=== PATIENT | female | born 1960 | race Caucasian/White ===

== ENCOUNTER 2022-02-07 05:10 | Observation (INO) ==
[2022-02-07] MEDS ORDERED: SODIUM CHLORIDE 0.9% 1000ML 1,000 ML IV ONE ×2 (05:37→06:24)
[2022-02-07] MEDS ORDERED: LORazepam 2 MG/2 ML SYR IV STA ×2 (05:37→06:03)
[2022-02-07] MEDS ORDERED: PIPERACILLIN/TAZOBACTAM 4.5 GM/120 ML BAG IV ONE (05:37)
[2022-02-07] MEDS ORDERED: ACETAMINOPHEN 1,000 MG/100 ML VIAL IV STA (05:39)
--- NOTE | 2022-02-07 05:46 | Emergency Department Note ---
History of Present Illness General Chief complaint: Confusion Stated complaint: CAN'T COMPREHEND,CONFUSION-GETTING WORSE Time Seen by Provider: 02/07/22 05:21 History of Present Illness This 62-year-old presents to the ER complaining of increased confusion fever and headache for the past few days who left AMA from [facility] waiting room Location: Generalized Quality: Confused Severity: Moderate Duration: Past few days Timing: Started Sunday Context: Family was concerned and brought the patient in Modifying factors: better with nothing; worse with nothing Patient herself appears confused and history is obtained from the daughter. The daughter states the patient normally is quite conversive. She has become more confused the past few days. She has a fever here. They did not notice a fever prior. Patient is able to follow commands. Her speech is slurred. She was emergently sent down for CT CTAs for stroke rule out. Symptoms started Sunday though. She is outside the window for treatment. Home Medications Medication Instructions Recorded Confirmed Type atorvastatin 40 mg tablet 40 mg PO DAILY 06/03/19 06/03/19 History cilostazol 50 mg tablet 50 mg PO BID 06/03/19 06/03/19 History citalopram 20 mg tablet 30 mg PO DAILY 06/03/19 06/03/19 History clopidogrel 75 mg tablet (Plavix) 75 mg PO DAILY 06/03/19 06/03/19 History gabapentin 300 mg capsule 300 mg PO .COMPLEX 06/03/19 06/03/19 History meloxicam 15 mg tablet 15 mg PO DAILY 06/03/19 06/03/19 History omeprazole 40 mg capsule,delayed 40 mg PO DAILY 06/03/19 06/03/19 History release trazodone 50 mg tablet 50 mg PO DAILY 06/03/19 06/03/19 History Allergies Allergy/AdvReac Type Severity Reaction Status Date / Time morphine Allergy Unknown SENSITIVITY Verified 06/03/19 10:59 -NAUSEA/RED NESS/SWELLI NG Past Med/Surg History Medical History (Updated 02/07/22 @ 06:56 by Toshia Skinner PA-C) Anxiety Surgical History (Updated 02/07/22 @ 05:41 by Toshia Skinner PA-C) No pertinent past surgical history Social History Smoking Status: Never smoker Preferred Language: Latvian Feels Safe at Home: Yes Review of Systems A total of 10 systems reviewed and were otherwise negative Physical Exam Vital Signs Vital Signs - 24 hr 02/07/22 05:14 02/07/22 05:26 02/07/22 06:11 Temperature 36.8 C 38.1 C H Temperature Source Temporal Artery Scan Rectal Pulse Rate 128 H Respiratory Rate 18 Respiratory Effort / Characteristics Non-Labored Spontaneous Respiratory Depth Normal Blood Pressure 135/82 Blood Pressure Mean 99 Blood Pressure Position Sitting Pulse Oximetry 93 88 L Oxygen Delivery Method Room Air Nasal Cannula Oxygen Flow Rate 2 Sepsis Recent Fever Within 48 Hours No Sepsis New/Unexplained Change in Mental Status No Sepsis Action Taken by Nursing No Action Required Oxygen Flow Rate - Titration 2 Pulse Oximetry Post Tiitration 92 VITALS: Vitals are noted on the nurse's note and reviewed by myself. Vital signs febrile. GENERAL: White female following commands with gargled speech, SKIN: The skin was without rashes, erythema, edema, or bruising. There is no tenting of the skin. Capillary reflex less than 2 seconds. HEAD: Normocephalic atraumatic. EARS: External auditory canals clear, EYES: Pupils equal round and reactive to light and accommodation. Conjunctivae without injection, sclerae without icterus. Extraocular movements intact. NOSE: Patent, turbinates without inflammation or discharge. No sinus tenderness. MOUTH: Mucous membranes mildly dry. Pharynx without erythema or exudate. Uvula midline. Airway patent. Tongue does not deviate. NECK: Supple without nuchal rigidity. No lymphadenopathy. No thyromegaly. Cervical spine is nontender. No JVD. HEART: Mildly tachycardic rate and rhythm LUNGS: Clear to auscultation bilaterally without wheezes, rales or rhonchi. No retractions or accessory muscle use. ABDOMEN: Positive bowel sounds x 4. Normal tympanic percussion. Soft, nontender, without masses or organomegaly. Osman sign negative. No guarding or rebound tenderness. No CVA tenderness MUSCULOSKELETAL: No muscle atrophy, erythema, or edema noted. NEURO: Patient was alert and oriented to person but not to place and time. Patient follows commands but appears confused. Course Administered Medications Discontinued Medications Sodium Chloride (Nss 1000ml) 1,000 mls @ 999 mls/hr IV .Q1H1M ONE Stop: 02/07/22 06:37 Last Admin: 02/07/22 05:50 Dose: 999 mls/hr Documented By: MARLENE Acetaminophen (Ofirmev) 1,000 mg in 100 mls @ 400 mls/hr IV NOW STA Stop: 02/07/22 05:53 Last Admin: 02/07/22 05:54 Dose: 400 mls/hr Documented By: MARLENE Ioversol (Optiray 300 500ml) 109 ml IV ONCE ONE Stop: 02/07/22 06:15 Last Admin: 02/07/22 06:15 Dose: 109 ml Documented By: CATRINA Lorazepam (Lorazepam 2 Mg/1 Ml Vial) 1 mg IV NOW STA; Protocol Stop: 02/07/22 05:38 Last Admin: 02/07/22 05:50 Dose: 1 mg Documented By: MARLENE Lorazepam (Lorazepam 2 Mg/1 Ml Vial) 1 mg IV NOW STA; Protocol Stop: 02/07/22 06:04 Last Admin: 02/07/22 06:05 Dose: 1 mg Documented By: BRITTNEE Metoclopramide HCl (Metoclopramide Hcl Inj 5 Mg/Ml 2 Ml Vial) 5 mg IV ONE ONE Stop: 02/07/22 06:17 Last Admin: 02/07/22 06:47 Dose: 5 mg Documented By: MARLENE Medical Decision Making Medical Records Attestation: I reviewed the patient's medical records. Home Medications Current Medication List: was personally reviewed by me Laboratory Data Attestation: I reviewed the patient's lab results. Result diagrams: 02/07/22 05:45 02/07/22 05:45 Lab Results 02/07/22 02/07/22 02/07/22 Range/Units 05:22 05:32 05:40 WBC (4.8-10.8) K/ul RBC (3.93-5.22) M/uL Hgb (12.0-16.0) g/dl Hct (34.1-44.9) % MCV (80.0-100.0) fL MCH (25.0-34.0) pg MCHC (32.0-36.0) g/dL RDW Std Deviation (36.4-46.3) fL RDW Coeff of Parker (11.5-14.5) % Plt Count (130-400) K/uL MPV (9.4-12.3) fL Immature Gran % (Auto) % Neut % (Auto) % Lymph % (Auto) % [place] % (Auto) % Eos % (Auto) % Baso % (Auto) % Neut # (Auto) (1.4-6.5) K/uL Lymph # (Auto) (1.2-3.4) K/uL [place] # (Auto) (0.24-0.82) K/uL Eos # (Auto) (0-0.50) K/uL Baso # (Auto) (0-0.2) K/uL Immature Gran # (Auto) (0.00-0.02) K/uL PT INR APTT PTT Ratio Sodium (136-145) mmol/L Potassium (3.5-5.1) mmol/L Chloride (98-107) mmol/L Carbon Dioxide (21-32) mmol/L Anion Gap (3-11) BUN (6-23) mg/dl Creatinine (0.6-1.2) mg/dl Est Cr Clr Drug Dosing Est GFR ( Amer) ml/min Est GFR (Non-Af Amer) ml/min BUN/Creatinine Ratio (10-20) Glucose (70-99(Fasting)) mg/dl POC Glucose 133 H (70-99) mg/dl Lactate (0.4-2.0) mmol/L Calcium (8.5-10.1) mg/dl Magnesium (1.7-2.4) mg/dl Total Bilirubin (0.2-1.0) mg/dl AST (13-39) U/L ALT (7-52) U/L Alkaline Phosphatase (34-104) U/L Troponin I High Sens (0-14) pg/ml Total Protein (6.0-8.3) gm/dl Albumin (3.4-5.0) gm/dl Globulin (2.5-4.0) gm/dl Albumin/Globulin Ratio (0.9-2) Urine Color Yellow Urine Appearance Clear (Clear) Urine pH 6.0 (4.5-7.5) Ur Specific [place] >= 1.030 (1.000-1.030) Urine Protein 3+ H (Negative) Urine Glucose (UA) Negative (Negative) Urine Ketones 2+ H (Negative) Urine Blood 2+ H (Negative) Urine Nitrite Negative (Negative) Urine Bilirubin 1+ H (Negative) Urine Urobilinogen Negative (Negative) Ur Leukocyte Esterase Negative (Negative) Urine RBC 0-4 (0-4) /hpf Urine WBC 5-10 H (0-5) /hpf Ur Epithelial Cells 0-5 (0-5) /lpf Urine Bacteria Negative (Negative) Urine Yeast Budding A (None Prsent) Adenovirus (PCR) Not Detected (NotDetected) B. pertussis DNA (PCR) Not Detected (NotDetected) B.parapertussis DNA PCR Not Detected (NotDetected) C. pneumoniae DNA (PCR) Not Detected (NotDetected) Coronavirus OC43 (PCR) Not Detected (NotDetected) Coronavirus HKU1 (PCR) Not Detected (NotDetected) Coronavirus 229E (PCR) Not Detected (NotDetected) SARS-CoV-2 (PCR) Not Detected (NotDetected) Coronavirus NL63 (PCR) Not Detected (NotDetected) Human Metapneumovir PCR Not Detected (NotDetected) Influenza Type A (PCR) Not Detected (NotDetected) Influenza Type B (PCR) Not Detected (NotDetected) M. pneumoniae (PCR) Not Detected (NotDetected) Parainfluenza 1 (PCR) Not Detected (NotDetected) Parainfluenza 2 (PCR) Not Detected (NotDetected) Parainfluenza 3 (PCR) Not Detected (NotDetected) Parainfluenza 4 (PCR) Not Detected (NotDetected) RSV (PCR) Not Detected (NotDetected) Entero/Rhino (PCR) Not Detected (NotDetected) 02/07/22 02/07/22 02/07/22 Range/Units 05:45 05:45 05:45 WBC 18.14 H (4.8-10.8) K/ul RBC 5.06 (3.93-5.22) M/uL Hgb 14.9 (12.0-16.0) g/dl Hct 43.2 (34.1-44.9) % MCV 85.4 (80.0-100.0) fL MCH 29.4 (25.0-34.0) pg MCHC 34.5 (32.0-36.0) g/dL RDW Std Deviation 38.5 (36.4-46.3) fL RDW Coeff of Parker 12.5 (11.5-14.5) % Plt Count 379 (130-400) K/uL MPV 9.3 L (9.4-12.3) fL Immature Gran % (Auto) 0.5 % Neut % (Auto) 71.0 % Lymph % (Auto) 16.5 % [place] % (Auto) 11.9 % Eos % (Auto) 0.0 % Baso % (Auto) 0.1 % Neut # (Auto) 12.88 H (1.4-6.5) K/uL Lymph # (Auto) 2.99 (1.2-3.4) K/uL [place] # (Auto) 2.16 H (0.24-0.82) K/uL Eos # (Auto) 0.00 (0-0.50) K/uL Baso # (Auto) 0.02 (0-0.2) K/uL Immature Gran # (Auto) 0.09 H (0.00-0.02) K/uL PT Cancelled INR Cancelled APTT Cancelled PTT Ratio Cancelled Sodium 132 L (136-145) mmol/L Potassium 2.7 L (3.5-5.1) mmol/L Chloride 93 L (98-107) mmol/L Carbon Dioxide 29 (21-32) mmol/L Anion Gap 10 (3-11) BUN 21 (6-23) mg/dl Creatinine 0.62 (0.6-1.2) mg/dl Est Cr Clr Drug Dosing Not Reportable Est GFR ( Amer) 112.0 ml/min Est GFR (Non-Af Amer) 96.6 ml/min BUN/Creatinine Ratio 33.9 H (10-20) Glucose 125 H (70-99(Fasting)) mg/dl POC Glucose (70-99) mg/dl Lactate (0.4-2.0) mmol/L Calcium 8.9 (8.5-10.1) mg/dl Magnesium 1.9 (1.7-2.4) mg/dl Total Bilirubin 1.3 H (0.2-1.0) mg/dl AST 29 (13-39) U/L ALT 22 (7-52) U/L Alkaline Phosphatase 76 (34-104) U/L Troponin I High Sens 39.9 H (0-14) pg/ml Total Protein 6.4 (6.0-8.3) gm/dl Albumin 4.4 (3.4-5.0) gm/dl Globulin 2.0 L (2.5-4.0) gm/dl Albumin/Globulin Ratio 2.2 H (0.9-2) Urine Color Urine Appearance (Clear) Urine pH (4.5-7.5) Ur Specific [place] (1.000-1.030) Urine Protein (Negative) Urine Glucose (UA) (Negative) Urine Ketones (Negative) Urine Blood (Negative) Urine Nitrite (Negative) Urine Bilirubin (Negative) Urine Urobilinogen (Negative) Ur Leukocyte Esterase (Negative) Urine RBC (0-4) /hpf Urine WBC (0-5) /hpf Ur Epithelial Cells (0-5) /lpf Urine Bacteria (Negative) Urine Yeast (None Prsent) Adenovirus (PCR) (NotDetected) B. pertussis DNA (PCR) (NotDetected) B.parapertussis DNA PCR (NotDetected) C. pneumoniae DNA (PCR) (NotDetected) Coronavirus OC43 (PCR) (NotDetected) Coronavirus HKU1 (PCR) (NotDetected) Coronavirus 229E (PCR) (NotDetected) SARS-CoV-2 (PCR) (NotDetected) Coronavirus NL63 (PCR) (NotDetected) Human Metapneumovir PCR (NotDetected) Influenza Type A (PCR) (NotDetected) Influenza Type B (PCR) (NotDetected) M. pneumoniae (PCR) (NotDetected) Parainfluenza 1 (PCR) (NotDetected) Parainfluenza 2 (PCR) (NotDetected) Parainfluenza 3 (PCR) (NotDetected) Parainfluenza 4 (PCR) (NotDetected) RSV (PCR) (NotDetected) Entero/Rhino (PCR) (NotDetected) 02/07/22 Range/Units 05:45 WBC (4.8-10.8) K/ul RBC (3.93-5.22) M/uL Hgb (12.0-16.0) g/dl Hct (34.1-44.9) % MCV (80.0-100.0) fL MCH (25.0-34.0) pg MCHC (32.0-36.0) g/dL RDW Std Deviation (36.4-46.3) fL RDW Coeff of Parker (11.5-14.5) % Plt Count (130-400) K/uL MPV (9.4-12.3) fL Immature Gran % (Auto) % Neut % (Auto) % Lymph % (Auto) % [place] % (Auto) % Eos % (Auto) % Baso % (Auto) % Neut # (Auto) (1.4-6.5) K/uL Lymph # (Auto) (1.2-3.4) K/uL [place] # (Auto) (0.24-0.82) K/uL Eos # (Auto) (0-0.50) K/uL Baso # (Auto) (0-0.2) K/uL Immature Gran # (Auto) (0.00-0.02) K/uL PT INR APTT PTT Ratio Sodium (136-145) mmol/L Potassium (3.5-5.1) mmol/L Chloride (98-107) mmol/L Carbon Dioxide (21-32) mmol/L Anion Gap (3-11) BUN (6-23) mg/dl Creatinine (0.6-1.2) mg/dl Est Cr Clr Drug Dosing Est GFR ( Amer) ml/min Est GFR (Non-Af Amer) ml/min BUN/Creatinine Ratio (10-20) Glucose (70-99(Fasting)) mg/dl POC Glucose (70-99) mg/dl Lactate 1.7 (0.4-2.0) mmol/L Calcium (8.5-10.1) mg/dl Magnesium (1.7-2.4) mg/dl Total Bilirubin (0.2-1.0) mg/dl AST (13-39) U/L ALT (7-52) U/L Alkaline Phosphatase (34-104) U/L Troponin I High Sens (0-14) pg/ml Total Protein (6.0-8.3) gm/dl Albumin (3.4-5.0) gm/dl Globulin (2.5-4.0) gm/dl Albumin/Globulin Ratio (0.9-2) Urine Color Urine Appearance (Clear) Urine pH (4.5-7.5) Ur Specific [place] (1.000-1.030) Urine Protein (Negative) Urine Glucose (UA) (Negative) Urine Ketones (Negative) Urine Blood (Negative) Urine Nitrite (Negative) Urine Bilirubin (Negative) Urine Urobilinogen (Negative) Ur Leukocyte Esterase (Negative) Urine RBC (0-4) /hpf Urine WBC (0-5) /hpf Ur Epithelial Cells (0-5) /lpf Urine Bacteria (Negative) Urine Yeast (None Prsent) Adenovirus (PCR) (NotDetected) B. pertussis DNA (PCR) (NotDetected) B.parapertussis DNA PCR (NotDetected) C. pneumoniae DNA (PCR) (NotDetected) Coronavirus OC43 (PCR) (NotDetected) Coronavirus HKU1 (PCR) (NotDetected) Coronavirus 229E (PCR) (NotDetected) SARS-CoV-2 (PCR) (NotDetected) Coronavirus NL63 (PCR) (NotDetected) Human Metapneumovir PCR (NotDetected) Influenza Type A (PCR) (NotDetected) Influenza Type B (PCR) (NotDetected) M. pneumoniae (PCR) (NotDetected) Parainfluenza 1 (PCR) (NotDetected) Parainfluenza 2 (PCR) (NotDetected) Parainfluenza 3 (PCR) (NotDetected) Parainfluenza 4 (PCR) (NotDetected) RSV (PCR) (NotDetected) Entero/Rhino (PCR) (NotDetected) Imaging Data Attestation: I personally reviewed and interpreted this imaging study as follows: MDM Narrative Prior records/ancillary studies reviewed and summarized above. Nursing notes reviewed. Additional history obtained from family. The patient's history was concerning for altered mental status. Differential diagnosis: Etiologies such as metabolic, infection, hypoglycemia, electrolyte abnormalities, cardiac sources, intracerebral event, toxicologic, neurologic, as well as others were entertained. Physical examination: As above. ER treatment provided: IV Lock Normal saline, Zosyn, vancomycin An order was placed for continuous cardiac monitoring. The monitor shows a rate of 60-1 50 with a sinus rhythm. Records requested from [facility], creatinine was 0.68 verbally from [facility] Tylenol was given, patient was agitated and was given Ativan On reassessment the patients mental status improved. Diagnostics interpretation by me: ECG: Ordered for altered mental status EKG: Poor baseline, rate of 118. No obvious ST elevation. Impression poor baseline sinus tachycardia interpreted by myself I think arrhythmia is unlikely. EKG shows There are no findings to suggest Brugada syndrome. Cardiac monitoring in the emergency department reveals no tachycardic or bradycardic dysrhythmia. Hypertrophic cardiomyopathy was considered but there are no clear historical elements pointing toward this. EKG is not suggestive. The QRS voltage is not extremely large The labs revealed leukocytosis Blood cultures pending Hypokalemia this is given orally and through the IV Negative urine Elevated troponin and repeat was ordered Imaging studies: Preliminary Findings Only See Final Report For Complete Findings CT HEAD: IMPRESSION: No ICH, mass effect or edema. No major vascular territory infarct. If persistent clinical concern for acute stroke, MRI could further evaluate Calvarium intact. Visualized sinuses and mastoid air cells are clear. Radiologist: Edmond Davila M.D. Chest x-ray with no acute consolidation, pneumothorax or free interpretation CTA HEAD: IMPRESSION: Exam mildly motion degraded. Within this constraint: No large vessel occlusion, significant stenosis, aneurysm or vascular malformation. Radiologist: Edmond Davila M.D. Preliminary Findings Only See Final Report For Complete Findings CTA NECK: IMPRESSION: No significant stenosis, dissection or vascular injury. Soft tissues of the neck are grossly unremarkable. Visualized lung apices are grossly clear. Osseous structures are intact. Radiologist: Edmond Davila M.D Given the above diagnostic work-up and treatment, this episode appears to be consistent with sepsis. Patient was started on broad-spectrum antibiotics. She was medicated as above. She will be admitted. Further treatment will be required. Patient was reassessed multiple times. She was medicated as above. She will be admitted. Patient was extremely agitated and would not sit still for CAT scan so she was given Ativan. She was reassessed multiple times. [facility] was contacted for her records. Patient will be admitted. Consultation: A consultation was placed with the hospitalist. The case was discussed and diagnostics were reviewed. The patient was evaluated in the ER for further treatment. The chart was completed utilizing [employer] Speech voice recognition software. Grammatical errors, random word insertions, pronoun errors, and incomplete sentences are an occassional consequence of this system due to software limitations, ambient noise, and hardware issues. Any formal questions or concerns about the content, text, or information contained within the body of this dictation should be directly addressed to the physician ex assistant/program director for clarification. Impression & Plan Sepsis, Altered mental status, Hypokalemia, Elevated troponin Discharge Plan Visit Data Chief Complaint: Confusion Stated Complaint: CAN'T COMPREHEND,CONFUSION-GETTING WORSE ED Provider: Byron Echeverria ED Midlevel Provider: Toshia Skinner Discharge Problem: Sepsis, Altered mental status, Hypokalemia, Elevated troponin Patient Disposition: Admitted As Inpatient Condition: Fair Forms Stand Alone Forms: [facility] [employer] Prescriptions Prescriptions: No Action gabapentin 300 mg capsule 300 mg PO .COMPLEX Rx Instructions: 300 mg PO 1 capsule in the AM, 2 capsules midday, & 2 capsules at bedtime; atorvastatin 40 mg tablet 40 mg PO DAILY clopidogrel [Plavix] 75 mg tablet 75 mg PO DAILY omeprazole 40 mg capsule,delayed release(DR/EC) 40 mg PO DAILY meloxicam 15 mg tablet 15 mg PO DAILY trazodone 50 mg tablet 50 mg PO DAILY citalopram 20 mg tablet 30 mg PO DAILY cilostazol 50 mg tablet 50 mg PO BID Referrals Referrals: Osbaldo Mcintosh [Primary Care Provider] -
[2022-02-07] MEDS ORDERED: VANCOMYCIN HCL 2,000 MG in SODIUM CHLORIDE 0.9% 500 ML IV ONE (05:55)
[2022-02-07] MEDS ORDERED: VANCOMYCIN CONSULT ACTIVE PRN (05:55)
[2022-02-07 05:59] LABS: Basophils # (auto) 0.02 K/uL (0-0.2); Basophils % (auto) 0.1 %; Hematocrit (blood only) 43.2 % (34.1-44.9); Hemoglobin 14.9 g/dl (12.0-16.0); Immature Granulocytes # (auto) 0.09 K/uL (0.00-0.02); Immature Granulocytes % (auto) 0.5 %; Lymphocytes # (auto) 2.99 K/uL (1.2-3.4); Lymphocytes % (auto) 16.5 %; Mean Corpuscular Hemoglobin 29.4 pg (25.0-34.0); Mean Corpuscular Hgb Conc 34.5 g/dL (32.0-36.0); Mean Corpuscular Volume 85.4 fL (80.0-100.0); Mean Platelet Volume 9.3 fL (9.4-12.3); Monocytes # (auto) 2.16 K/uL (0.24-0.82); Monocytes % (auto) 11.9 %; Neutrophils # (auto) 12.88 K/uL (1.4-6.5); Platelet Count 379 K/uL (130-400); RDW Coefficient of Variation 12.5 % (11.5-14.5); RDW Standard Deviation 38.5 fL (36.4-46.3); Red Blood Count 5.06 M/uL (3.93-5.22); White Blood Count 18.14 K/ul (4.8-10.8)
[2022-02-07] MEDS ORDERED: OPTIRAY 300 500mL IV ONE ×2 (06:14→09:20)
[2022-02-07 06:15] LABS: Appearance Urine Clear (Clear); Bilirubin Urine 1+ (Negative); Blood Urine 2+ (Negative); Color Urine Yellow; Glucose Urine UA Negative (Negative); Ketones Urine 2+ (Negative); Leukocyte Esterase Urine Negative (Negative); Nitrite Urine Negative (Negative); Protein Urine 3+ (Negative); Specific Gravity Urine >= 1.030 (1.000-1.030); Urobilinogen Urine Negative (Negative)
[2022-02-07] MEDS ORDERED: METOCLOPRAMIDE HCL INJ 5 MG/ML 2 ML VIAL IV ONE (06:16)
[2022-02-07 06:20] LABS: Alanine Aminotransferase 22 U/L (7-52); Albumin Globulin Ratio 2.2 (0.9-2); Albumin Level 4.4 gm/dl (3.4-5.0); Alkaline Phosphatase 76 U/L (34-104); Anion Gap 10 (3-11); Aspartate Aminotransferase 29 U/L (13-39); BUN Creatinine Ratio 33.9 (10-20); Bilirubin,Total 1.3 mg/dl (0.2-1.0); Blood Urea Nitrogen 21 mg/dl (6-23); Calcium 8.9 mg/dl (8.5-10.1); Carbon Dioxide 29 mmol/L (21-32); Chloride 93 mmol/L (98-107); Est GFR (Non-African American) 96.6 ml/min; Glucose 125 mg/dl (70-99(Fasting)); Magnesium 1.9 mg/dl (1.7-2.4); Potassium 2.7 mmol/L (3.5-5.1); Sodium 132 mmol/L (136-145); Total Protein 6.4 gm/dl (6.0-8.3)
[2022-02-07 06:25] LABS: Bacteria Urine Negative (Negative); Epithelial Cell Urine 0-5 /lpf (0-5); RBC Urine 0-4 /hpf (0-4)
[2022-02-07] MEDS ORDERED: POTASSIUM CHLORIDE 20 MEQ/15 ML UDC PO STA (06:25)
[2022-02-07 06:26] LABS: Troponin I High Sensitivity 39.9 pg/ml (0-14)
[2022-02-07 06:52] LABS: Adenovirus PCR Not Detected (NotDetected); Bordetella parapertussis PCR Not Detected (NotDetected); Bordetella pertussis PCR Not Detected (NotDetected); Chlamydia pneumoniae PCR Not Detected (NotDetected); Coronavirus 229E PCR Not Detected (NotDetected); Coronavirus CoV-2 (COVID19)PCR Not Detected (NotDetected); Coronavirus HKU1 PCR Not Detected (NotDetected); Coronavirus NL63 PCR Not Detected (NotDetected); Coronavirus OC43PCR Not Detected (NotDetected); Human Metapneumovirus PCR Not Detected (NotDetected); Influenza A PCR Not Detected (NotDetected); Influenza B PCR Not Detected (NotDetected); Mycoplasma pneumoniae PCR Not Detected (NotDetected); Parainfluenza Virus 1 PCR Not Detected (NotDetected); Parainfluenza Virus 2 PCR Not Detected (NotDetected); Parainfluenza Virus 3 PCR Not Detected (NotDetected); Parainfluenza Virus 4 PCR Not Detected (NotDetected); Respiratory Syncytial VirusPCR Not Detected (NotDetected); Rhinovirus/Enterovirus PCR Not Detected (NotDetected)
--- NOTE | 2022-02-07 07:14 | CT Scan Report ---
HEAD CT NONCONTRAST CT DOSE: 1233.25 mGy.cm HISTORY: Stroke Like Symptoms TECHNIQUE: Multiaxial CT images of the head were performed without the use of intravenous contrast. A utomated exposure control was utilized for this study. A dose lowering technique was utilized adheri ng to the principles of ALARA. Comparison: None. Findings: The paranasal sinuses and mastoid air cells are clear. The calvarium and skull base are int act. Questionable loss of the bains-white junction at the right subinsular cortex best seen on image 1 3. No intracranial mass, hematoma, midline shift. Impression: Questionable loss of the bains-white junction of the right subinsular cortex which could be artifact. If the patient is experiencing right MCA territory infarct symptoms then consider follow-up brain MRI for further evaluation. ACT 112: Negative or not required by law. Electronically signed by: Esau Dill M.D. 02/07/2022 7:12 AM
--- NOTE | 2022-02-07 07:24 | CT Scan Report ---
HEAD CTA HISTORY: Stroke Like Symptoms TECHNIQUE: Multiaxial CT images of the head were performed following the intravenous administration o f contrast to evaluate the major cerebral vessels. Maximum intensity projection images were also obta ined. A dose lowering technique was utilized adhering to the principles of ALARA. COMPARISON: Noncontrast head CT 02/07/2022. FINDINGS: There is a persistent right posterior circulation which is considered to be a normal variant. Visualized intracranial internal carotid arteries, distal vertebral arteries, and basilar ar dean are widely patent. There is no significant stenosis, occlusion, or aneurysm seen within the bila teral ACAs, MCAs, or heavy equipment plumbing supervisor. The major dural venous sinuses are patent. IMPRESSION: No significant stenosis, occlusion, or aneurysm within the tunica-biloxi of [place]. ACT 112: Negative or not required by law. Electronically signed by: Esau Dill M.D. 02/07/2022 7:22 AM
--- NOTE | 2022-02-07 07:25 | CT Scan Report ---
CT ANGIOGRAM OF THE NECK CLINICAL HISTORY: Strokelike symptoms. COMPARISON STUDY: No priors. TECHNIQUE: Following the IV administration of 109 of Optiray 300, CT angiogram of the neck was perfor med from the aortic arch to the skull base. Images are reviewed in the axial, sagittal, and coronal p lanes. 3-D MIPS images are created and assessed. IV contrast was administered without complication. A ll measurements were calculated based on NASCET criteria. A dose lowering technique was utilized adh ering to the principles of ALARA. The examination is moderately degraded by motion artifact. FINDINGS: Thoracic aorta: Visualized portions of the thoracic aorta are normal in caliber. The aortic arch demo nstrates standard 3-vessel anatomy. Right carotid arterial system: The right common carotid artery is widely patent, as are the right int ernal and external carotid arteries. Left carotid arterial system: The left common carotid artery is widely patent, as are the left internal investigator al and external carotid arteries. Calcified plaque is noted in the carotid bulb. Vertebral arteries: The vertebral arteries are widely patent and codominant. Subclavian arteries: Widely patent bilaterally. Intracranial vasculature: The visualized intracranial vessels still visible are patent. Jugular veins: Widely patent bilaterally. Brain parenchyma: The visualized brain parenchyma the skull base is within normal limits. Lung apices: Metallic foreign bodies are noted in the left upper lobe. Partially visualized upper lob e lung parenchyma is otherwise grossly clear. Assessment is degraded by motion artifact. Soft tissues: The visualized pharyngeal soft tissues are normal in appearance noting angiographic pha se technique. The oropharyngeal airway appears widely patent. The salivary and thyroid glands are nor mal in appearance. No cervical lymphadenopathy is seen. Skeletal structures: The skeletal structures are osteopenic. The visualized calvarium at the skull ba se appears intact. The imaged cervical spine is maintained including multilevel spondylosis. No lytic or blastic lesion is seen. Sinuses and mastoids: The visualized paranasal sinuses are clear. The mastoid air cells are well-pneu matized. IMPRESSION: Unremarkable CT angiogram of the neck. ACT 112: Negative or not required by law. Electronically signed by: Selwyn Morales M.D. 02/07/2022 7:24 AM
--- NOTE | 2022-02-07 07:25 | History & Physical Report ---
Date of Service February 07, 2022 Assessment & Plan (1) Metabolic encephalopathy: Plan: Several days of rapidly progressive altered mental status, generalized weakness and fevers, with "migraines" immediately prior to onset of symptoms. CT head/neck/chest/A/P without obvious source of infection. Suspect infectious cause due to ?meningitis. Less likely drug-induced as no home meds are concerning and her symptoms started before Ativan was given in the ED - although Ativan may have further exacerbated altered mental status. - LP done by Radiology today - follow cell count/diff/GS/cx - trend blood cx - UDS pending - started on Vancomycin/Zosyn in the ED - will continue with Vancomycin empiric dosing and transition Zosyn to Ceftriaxone 2g IV Q12H (meningitis dosing) - will start Dexamethasone 10mg IV Q6H to cover for pneumococcal meningitis - s/p 2L NSS boluses in ED - was initially started on Normosol-R @125cc/hr but will hold this for now, as CT chest with signs of mild pulmonary vascular congestion - avoid any deliriogenic medications; no benzodiazepines - repeat CT head w/o contrast for worsening neurologic exam - consider addition of Acyclovir to cover for HSV encephalitis (unfortunately CSF sample limited and thus was not able to test for HSV in CSF) - trend CBC in AM (2) Sepsis: Plan: SIRS 3/4, suspect 2/2 to meningitis as stated above. Plan as above (3) Elevated troponin: Plan: hsTrop 39.9 to 41.1 on re-check 2 hours later. Had not complained of chest pain although difficult to fully assess for this given AMS. EKG without ST/T changes. Suspect demand ischemia in context of sepsis/?meningitis. - TTE with grade I diastolic dysfunction and hyperdynamic EF - no further management at this time (4) Peripheral arterial disease: Plan: Hold home statin/Plavix/Cilostazol for now while NPO 2/2 to AMS. (5) GERD (gastroesophageal reflux disease): Plan: Hold home PPI while NPO (6) Depression: Plan: Hold home Celexa/Trazodone while NPO Plan FEN/GI: NPO, holding IVFs for now DVT Prophylaxis: Lovenox Code Status: full code Disposition: PCU History of Present Illness Chief Complaint: confusion Primary Care Provider: Osbaldo La Imelda is a 62yo female with PMHx significant for HLD, PAD, obesity and GERD who presented to [facility] ED on 02/07 for progressive fever/chills, headache, confusion for 3 days. History obtained from patient's daughter as she is currently pleasantly delirious and unable to speak in coherent sentences. Patient reportedly recently went to [place] for a democrat with friends and drove herself back to [place]. Of note several people at the democrat had a stomach bug but the patient reportedly did not complain of any GI symptoms or generalized illness. Then started to have a "migraine" ~4 days ago, which lasted for 1-2 days. Of note patient does not usually get migraines. Then the patient reportedly had fevers for last 2-3 days and progressively worsening confusion. Over last 24 hours the patient has progressively become confused to the point of currently being unable to follow commands or speak in coherent sentences. Reportedly patient did not complain of cough, chest pain, SOB, any pain whatsoever, or rash. Patient's daughter reports that she has no smoking history and rarely drinks alcohol; no drug use. Usually proficient in ADLs/iADLs and wi thout baseline dementia. In the ED the patient had T38.1C, HR 128, and is satting 88% on 2L NC. Normotensive. Labs significant for WBC 18.14 (neutrophilic predominance and L shift), Lacate 1.7, Procal negative. Na 132/ K 2.7/Cl 93. TBili 1.3. CK 312. hsTrop 39.9 - re-check 41.1. EKG without ST/T changes. UA no LE/nitrite/bacteria but with budding yeast. Biofire campbell-negative. CT head with questionable loss of the bains-white junction of the right subinsular cortex which could be artifact. CTA head/neck unremarkable. Blood/urine cxs taken and patient started on Vanco/Zosyn empiric coverage. Patient received total 2L NSS boluses, Ativan 1mg IV x2, Tylenol 1g IV x1, and Reglan 5mg IV x1. Also received KCl 40mEq PO and 2 K-riders. Allergies Allergy/AdvReac Type Severity Reaction Status Date / Time morphine Allergy Unknown SENSITIVITY Verified 06/03/19 10:59 -NAUSEA/RED NESS/SWELLI NG Home Medications Medication Instructions Recorded Confirmed Type atorvastatin 40 mg tablet 40 mg PO DAILY 06/03/19 06/03/19 History cilostazol 50 mg tablet 50 mg PO BID 06/03/19 06/03/19 History citalopram 20 mg tablet 30 mg PO DAILY 06/03/19 06/03/19 History clopidogrel 75 mg tablet (Plavix) 75 mg PO DAILY 06/03/19 06/03/19 History gabapentin 300 mg capsule 300 mg PO .COMPLEX 06/03/19 06/03/19 History meloxicam 15 mg tablet 15 mg PO DAILY 06/03/19 06/03/19 History omeprazole 40 mg capsule,delayed 40 mg PO DAILY 06/03/19 06/03/19 History release trazodone 50 mg tablet 50 mg PO DAILY 06/03/19 06/03/19 History Past Med/Surg History Medical History (Updated 02/07/22 @ 17:10 by Leo Senior MD) Anxiety Depression GERD (gastroesophageal reflux disease) Peripheral arterial disease Surgical History (Updated 02/07/22 @ 05:41 by Toshia Skinner PA-C) No pertinent past surgical history Social History Smoking Status: Never smoker Do You Dip or Chew Tobacco: No; Tobacco Cessation Education Requested by Patient: No Hx Alcohol Use: No Hx Substance Use: No Preferred Language: Palauan Communication Ability: Effective Communication Ability Comment: effective at baseline, not currently Car Wash Attendant Automatic Required: No Beliefs That Will Affect Care: None Current Living Situation: Spouse Other Information That Helps Us Care for You: No Feels Safe at Home: Yes Safety Concerns: Feels Safe At This Time Assistive Devices: Cane Review of Systems Review of Systems: All systems reviewed & are unremarkable except as noted in HPI & below Physical Exam Physical Exam: General: Eyes closed, only responds with yes to several questions, cannot speak in coherent sentences. NAD. HEENT: Atraumatic, normocephalic. PERRLA. Pulm: CTAB A&P. -wheezes, -rales, -rhonchi. Symmetrical chest rise. No increase work of breathing. No respiratory distress. Cardiac: RRR, -mrg. Radial pulses intact and symmetrical. Abdominal: soft, non-tender, non-distended, BS x 4 Skin: warm, dry, no rash Neurologic: neurologic exam significantly limited due to altered mental status, although no focal neurologic deficits apparent. Results & Data Results & Data ([facility]) Vital Signs (Past 12 Hours) Vital Signs Temp Pulse Resp BP Pulse Ox O2 Del Method O2 Flow Rate 02/07/22 06:11 88 L Nasal Cannula 2 02/07/22 05:26 38.1 C H 02/07/22 05:14 36.8 C 128 H 18 135/82 93 Room Air Supervising Physician Co-Signing Physician Notes Attending attestation Pt seen and examined in concert with Dr. Senior. In agreement with the documented findings as noted in the resident documentation with any exceptions or additions as noted here. 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 Daughter at bedside reports a few significant medical issues without known etiology, though does report her PCP has followed her for 10 years and would have her history. On examination, S1/S2 nl RRR 2/6 KEMAL. Diminished basilar breath sounds but may be habitus. Abd [place] some potential lower abdominal TTP difficult to localize, without guarding, BS+ve. Difficult to assess neuro examination but PERRLA, EOMI, no apparent str or facial deficit. No evident scarring or surgical sites noted on the b/l LE. Metabolic encephalopathy in the setting of ?infection - continue vanc/zosyn, follow up cultures. IVF as noted. Pending imaging evaluation for source determination, as well as LP pending. Patient w/ recent travel to [place] without other known exposure or substance use - UDS. Additionally, patient rec'd lorazepam in ED, so will monitor for same. Else see resident documentation as noted. Resident Activity Tracking Resident Involvement: Resident Care Provided Care Provided: Adult Hospital Medicine (1) Sepsis Sepsis acute organ dysfunction status: unspecified Sepsis type: sepsis due to unspecified organism Qualified Code(s): A41.9 - Sepsis, unspecified organism
[2022-02-07] MEDS: POTASSIUM CHLORIDE / WTR 10 MEQ/100 ML PLCT IV SCH ×6 (08:07→23:48)
[2022-02-07] MEDS ORDERED: NORMOSOL-R 1,000 ML IV SCH (08:30)
--- NOTE | 2022-02-07 08:38 | XRay Report ---
XR chest 1V portable HISTORY: fever COMPARISON: Chest 01/27/2011. FINDINGS: No pneumothorax. No pleural effusions. The heart is mildly enlarged. There are low lung vol umes. There is diffuse interstitial/vascular thickening. This suggests mild congestive change. IMPRESSION: Cardiomegaly with diffuse interstitial/vascular thickening suggestive of mild congestive change. ACT 112: Negative or not required by law. Electronically signed by: Esau Dill M.D. 02/07/2022 8:37 AM
[2022-02-07 08:52] LABS: INR 1.3 (0.9-1.1); Partial Thromboplastin Ratio 0.8; Partial Thromboplastin Time 20.8 Seconds (21.0-31.0)
[2022-02-07 08:53] LABS: Base Excess ABG 3.8 mEq/L (-9-1.8); HCO3 ABG 29 mmol/L (19-24); Oxygen Saturation ABG 98.6 % (90-95); PCO2 ABG 46 mmHg (35-46); PO2 ABG 86 mmHg (80-95); pH ABG 7.41 (7.35-7.45)
[2022-02-07 08:55] LABS: Allen Test Pos (Pos)
[2022-02-07] MEDS ORDERED: LABETALOL HCL IV 5 MG/ML 20ML IV PRN (09:34)
--- NOTE | 2022-02-07 09:45 | CT Scan Report ---
CT ANGIOGRAM OF THE ABDOMEN AND PELVIS CLINICAL HISTORY: Sepsis. Generalized abdominal pain. COMPARISON STUDY: Chest CT dated 05/19/2019. TECHNIQUE: Following the IV administration of 120 cc of Optiray 300, CT angiogram of the abdomen and pelvis was performed from the lung bases the proximal femora. Images are reviewed in the axial, sagit lbank, and coronal planes. 3-D MIPS images are created and assessed. IV contrast was administered witho ut complication. A dose lowering technique was utilized adhering to the principles of ALARA. The exa mination is compromised by motion artifact, as well as by streak artifact from the arms which could n ot be elevated above the abdomen. CT DOSE: 2643.67 mGy.cm FINDINGS: Lower chest: The heart is normal in size noting trace pericardial effusion. The coronary arteries are densely calcified. Evaluation of the lung bases is significantly degraded by motion artifact. There is bibasilar scarring/atelectasis. No airspace consolidation or pleural effusion is identified. There is a small hiatal hernia. Liver: Evaluation of the liver is degraded by streak artifact. The contrast-enhanced liver is normal in size and heterogeneous in attenuation. There is no intrahepatic biliary ductal dilatation. Gallbladder: Unremarkable. Spleen: Normal in size and attenuation noting heterogeneous arterial phase enhancement. Pancreas: Moderately atrophic and grossly unremarkable. Adrenal glands: There is a 4.5 cm indeterminate right adrenal nodule. This is modestly increased in s ize dating back to 2019. The left adrenal gland is normal as imaged. Kidneys: The contrast enhanced kidneys are normal in size and without hydronephrosis. The kidneys enh ance and excrete symmetrically. The renal collecting systems and ureters are filled with excreted con trast. No evidence of urothelial lesion is seen. Abdominal aorta and iliac arteries: The abdominal aorta is normal in course and caliber noting advanc ed atherosclerotic calcification. The abdominal aorta is patent. No dissection is seen. The iliac art eries are widely patent bilaterally. Major branches of the abdominal aorta: The celiac trunk, superior mesenteric, and inferior mesenteric arteries are widely patent. There is a replaced right hepatic artery which arises from the superior mesenteric artery. The splenic artery is patent. Single bilateral renal arteries are widely patent. Bowel: There is nirt-jn-vrtzivyf sigmoid diverticulosis without CT evidence of acute diverticulitis. No bowel obstruction is seen. Mild fecal retention is noted throughout the colon. The appendix is we ll-visualized and normal. Peritoneum: There is no intraperitoneal free air or abdominal ascites. Lymphadenopathy: None. Pelvic viscera: The bladder is filled with excreted IV contrast and normal as imaged. The uterus and adnexa are normal as visualized. Skeletal structures: The skeletal structures are osteopenic. There is lumbosacral spondylosis with po stoperative change from L4-L5 spinal fusion. No lytic or blastic lesions are seen. IMPRESSION: 1. Streak and motion compromised examination. 2. Unremarkable CT angiogram of the abdominal aorta and its major branches noting advanced atheroscle rotic calcification. 3. No acute infectious or inflammatory findings are seen in the abdomen or pelvis. 4. There is a 4.5 cm pathologically indeterminate right adrenal nodule. This has modestly increased i n size dating back to 2019. 5. Additional findings as above. ACT 112: Negative or not required by law. Electronically signed by: Selwyn Morales M.D. 02/07/2022 9:42 AM
--- NOTE | 2022-02-07 09:45 | CT Scan Report ---
CHEST CT WITH CONTRAST CT DOSE: HISTORY: sepsis, no source TECHNIQUE: Multiaxial CT images of the chest were performed following the intravenous administration of contrast. A dose lowering technique was utilized adhering to the principles of ALARA. COMPARISON: Outside hospital chest CT 05/23/2019. FINDINGS: Suboptimal evaluation the chest due to streak artifact from the patient's overlapping arms. There is a 4 cm heterogeneous right adrenal gland mass which is better appreciated on the same day a bdomen and pelvis CT. This appears to be similar in size compared to the 2019 chest CTA. There is mil d elevation of the right hemidiaphragm, unchanged. The thyroid gland enhances normally. No mediastina l or hilar lymphadenopathy. The heart is borderline enlarged. This remains unchanged. Mild to moderat e coronary artery calcifications are noted. Normal caliber thoracic aorta with no evidence for dissec tion. The main pulmonary arteries are patent. There is a metallic clip within the right breast. No fr actures within the visualized osseous structures. Mild degenerative disc disease within the mid to lo wer thoracic spine. No pneumothorax. The central airways appear patent. Suboptimal evaluation of the lungs due to the motion artifact. However, there are no focal lung consolidations to suggest pneumoni a. Mild dependent changes seen at the lung bases. Mild interstitial thickening which may represent de veloping congestive change. Status post coil embolization of the lingular pulmonary AVM. IMPRESSION: 1. Cardiomegaly with mild interstitial prominence suggestive of developing congestive change. 2. No focal lung consolidations to suggest pneumonia. 3. Redemonstration of a 4 cm right adrenal gland mass. This is similar in size compared to the 2019 c hest CTA. This is better appreciated on the same day abdomen and pelvis CT. 4. Suboptimal evaluation of the chest due to the respiratory motion artifact and streak artifact from the patient's overlapping arms. ACT 112: Negative or not required by law. Electronically signed by: Esau Dill M.D. 02/07/2022 9:44 AM
[2022-02-07] MEDS ORDERED: Patient's HEIGHT &/or WEIGHT Needed SCH ×2 (10:15→10:30)
[2022-02-07 10:50] LABS: Lyme Ab IgG w/WB Rflx Negative (Negative); Lyme Ab IgM w/WB Rflx Negative (Negative)
[2022-02-07] MEDS ORDERED: ENOXAPARIN INJ 40 MG/0.4 ML SYR SQ SCH (11:00)
[2022-02-07] MEDS: cefTRIAXone SODIUM 2,000 MG in DEXTROSE 5% 50 ML IV SCH ×2 (11:25→23:34)
--- NOTE | 2022-02-07 11:39 | Electrocardiogram Report ---
Test Reason : Blood Pressure : / mmHG Vent. Rate : 116 BPM Atrial Rate : 116 BPM P-R Int : 142 ms QRS Dur : 068 ms QT Int : 326 ms P-R-T Axes : 036 023 022 degrees QTc Int : 453 ms Poor data quality, interpretation may be adversely affected Sinus tachycardia Otherwise normal ECG When compared with ECG of 11-SEP-2013 16:44, Vent. rate has increased BY 42 BPM Confirmed by Phu Samaniego ([id number]) on 02/07/2022 11:39:33 AM Referred By: REFERRED SELF Confirmed By:Nam Samaniego
--- NOTE | 2022-02-07 11:41 | Pharmacy Report ---
Pharmacy PK ABX Note - Date of Service February 07, 2022 - Assessment and Plan Assessment 62 year old F receiving IV vancomycin and ceftriaxone empirically in the setting of fevers/chills, headache and AMS. Blood and urine cultures pending, lumbar puncture ordered. Renal function stable. Day #1 of antimicrobial therapy. Plan Vancomycin * Loading dose: 2000 mg IV x 1 * Maintenance dose: 1500 mg IV every 12 hours * Regimen is predicted to achieve target AUC/MARGAUX of 400-600 mg/L.hr * Random, non-steady state level ordered for tomorrow AM to assess regimen given BMI >35 Pharmacy will continue to follow and will adjust dose/frequency as necessary. Thank you. Pharmacy has transitioned to AUC monitoring for vancomycin. AUC/MARGAUX is the preferred PK/PD target and is associated with decreased risk of nephrotoxicity compared to traditional trough targets.
--- NOTE | 2022-02-07 13:58 | XCELERA ---
[id number]
--- NOTE | 2022-02-07 15:15 | Fluoroscopy Report ---
FLUOROSCOPICALLY GUIDED LUMBAR PUNCTURE CLINICAL HISTORY: fever/altered mental status, eval for meningitis FLUOROSCOPY TIME: 0.7 minutes. A single fluoroscopic spot image was submitted. PROCEDURE: The procedure, risks and benefits were discussed with the patient and the patient's [facility] including the risk of spinal headache, bleeding and infection. The patient's agreed to the procedure and informed written consent was obtained. The procedure was performed by Dr. Fuentes sykes a timeout. The left L3-L4 interlaminar space was targeted. Skin overlying the space was prepp ed and draped in the usual sterile fashion and local anesthesia was achieved with 1% lidocaine. Under intermittent fluoroscopic guidance, a 20-gauge x 4.75 in. Sprotte needle was inserted into the theca l sac. Approximately 0.5 cc of serosanguineous fluid was identified within the tubing but then immedi ately stopped. Therefore, the needle was removed and a second attempt at the L5 laminectomy site was performed. Approximately 0.5 cc of serosanguineous fluid was identified within the tubing was then im mediately stopped. No additional attempts were made due to the patient's condition. The patient parrish ated the procedure well. There were no immediate complications. A total of 0.5 cc of serosanguineous fluid was sent to the laboratory at the request of the referring physician. IMPRESSION: Fluoroscopic guided lumbar puncture with removal of 0.5 cc of serosanguineous fluid. A to blank of 2 separate attempts were made. No additional attempts were performed due to the patient's cond ition. No immediate complications. ACT 112: Negative or not required by law. Electronically signed by: Esau Dill M.D. 02/07/2022 3:14 PM
[2022-02-07] MEDS: VANCOMYCIN HCL 1,500 MG in SODIUM CHLORIDE 0.9% 500 ML IV SCH (15:52)
[2022-02-07 16:52] LABS: Appearance CSF Bloody; CSF Count Tube # 1; CSF Xanthrochromic No xanthochromia; Color CSF Red; Mononuclear WBC CSF 93.4 %; Polynuclear WBC CSF 6.6 %; Red Blood Cell CSF (A) 12000 /uL (0-); White Blood Cell CSF (A) 351 /uL (0-5)
[2022-02-07] MEDS: dexAMETHasone 10 MG in SYRINGE 0 ML IV SCH ×2 (17:45→23:47)
[2022-02-07 18:53] LABS: BUN Creatinine Ratio 27.5 (10-20); Calcium 7.8 mg/dl (8.5-10.1); Creatinine Clr Calc Pharmacy 154.4 ml/min; Est GFR (African American) 119.4 ml/min; Est GFR (Non-African American) 103.1 ml/min; Magnesium 1.8 mg/dl (1.7-2.4); Potassium 2.6 mmol/L (3.5-5.1)
[2022-02-07] MEDS: ACETAMINOPHEN 1000 MG/100 ML IV IV PRN (19:42)
[2022-02-07] MEDS ORDERED: KETOROLAC TROMETHAMINE 15 MG/ML VIAL IV PRN (21:27)
[2022-02-07 22:50] LABS: Amphetamines+Metham, Urine Neg (Neg); Barbiturates, Urine Neg (Neg); Benzodiazepine, Urine Neg (Neg); Cocaine, Urine Neg (Neg); MDMA (Ecstacy), Urine Neg (Neg); Methadone, Urine Neg (Neg); Opiate, Urine Neg (Neg); Phencyclidine, Urine Neg (Neg)
[2022-02-07] MEDS: ACYCLOVIR SOD 850 MG in DEXTROSE 5% 250 ML IV SCH (23:47)
[2022-02-08] MEDS: POTASSIUM CHLORIDE / WTR 10 MEQ/100 ML PLCT IV SCH ×10 (01:12→17:33)
[2022-02-08] MEDS: VANCOMYCIN HCL 1,500 MG in SODIUM CHLORIDE 0.9% 500 ML IV SCH ×2 (01:14→14:20)
[2022-02-08] MEDS: dexAMETHasone 10 MG in SYRINGE 0 ML IV SCH ×2 (04:18→10:27)
[2022-02-08] MEDS: ACETAMINOPHEN 1000 MG/100 ML IV IV PRN ×2 (04:18→14:40)
[2022-02-08 07:25] LABS: Basophils # (auto) 0.02 K/uL (0-0.2); Basophils % (auto) 0.1 %; Hematocrit (blood only) 41.6 % (34.1-44.9); Hemoglobin 14.2 g/dl (12.0-16.0); Immature Granulocytes # (auto) 0.18 K/uL (0.00-0.02); Immature Granulocytes % (auto) 0.9 %; Lymphocytes % (auto) 7.4 %; Mean Corpuscular Hemoglobin 29.6 pg (25.0-34.0); Mean Corpuscular Hgb Conc 34.1 g/dL (32.0-36.0); Mean Corpuscular Volume 86.7 fL (80.0-100.0); Monocytes # (auto) 0.97 K/uL (0.24-0.82); Monocytes % (auto) 4.8 %; Neutrophils # (auto) 17.67 K/uL (1.4-6.5); Neutrophils % (auto) 86.8 %; Platelet Count 302 K/uL (130-400); RDW Coefficient of Variation 12.5 % (11.5-14.5); RDW Standard Deviation 39.5 fL (36.4-46.3); White Blood Count 20.34 K/ul (4.8-10.8)
[2022-02-08] MEDS: ACYCLOVIR SOD 850 MG in DEXTROSE 5% 250 ML IV SCH ×2 (07:30→15:15)
[2022-02-08] MEDS: AMPICILLIN 2,000 MG in SODIUM CHLOR 0.9% AD-VAN 100 ML IV SCH ×2 (08:05→14:48)
[2022-02-08 08:07] LABS: BUN Creatinine Ratio 27.1 (10-20); Bilirubin,Total 0.8 mg/dl (0.2-1.0); Calcium 8.3 mg/dl (8.5-10.1); Creatinine Clr Calc Pharmacy 164.6 ml/min; Est GFR (African American) 121.8 ml/min; Est GFR (Non-African American) 105.1 ml/min; Potassium 3.1 mmol/L (3.5-5.1)
--- NOTE | 2022-02-08 08:09 | XRay Report ---
XR chest 1V portable HISTORY: Fever/hypoxia COMPARISON: Chest 02/07/2022. FINDINGS: No pneumothorax. No pleural effusions. The heart remains enlarged. There is mild central pu lmonary vascular congestion without overt edema. This is similar to the prior study. Embolization coi ls again noted within the lingula. IMPRESSION: No change in the mild central pulmonary vascular congestion without overt edema. ACT 112: Negative or not required by law. Electronically signed by: Esau Dill M.D. 02/08/2022 8:08 AM
--- NOTE | 2022-02-08 08:26 | CT Scan Report ---
CT OF THE HEAD WITHOUT CONTRAST CLINICAL HISTORY: Worsening of neurologic symptoms. Confusion. COMPARISON STUDY: Head CT and CTA of the head February 07, 2022. CT DOSE: 746.71 mGy.cm TECHNIQUE: Helical axial images of the head were obtained without IV contrast. Automated exposure con trol was utilized for the study. A dose lowering technique was utilized adhering to the principles o f ALARA. FINDINGS: No acute intracranial hemorrhage, midline shift or mass effect is present. Questionable los s of bains-white differentiation within the right subinsular cortex is unchanged since prior head CT. This exam is mildly compromised by artifact. The ventricular system is unremarkable. The basal cister ns are patent. No extra-axial collections are present. There are no findings to suggest acute dural s inus thrombosis or acute territorial infarct. No significant calvarial abnormalities are present. Vis ualized portions of the sinuses and mastoid air cells are clear. IMPRESSION: 1. No acute intracranial hemorrhage or mass effect. 2. No change in questionable loss of bains-white differentiation within the right subinsular since rick or head CT. If indicated, MRI of the brain could be obtained to exclude acute infarct. ACT 112: Negative or not required by law. Electronically signed by: Brannon Weiss M.D. 02/08/2022 8:25 AM
[2022-02-08] MEDS: cefTRIAXone SODIUM 2,000 MG in DEXTROSE 5% 50 ML IV SCH (10:28)
--- NOTE | 2022-02-08 10:29 | Pharmacy Report ---
Pharmacy PK ABX Note - Date of Service February 08, 2022 - Assessment and Plan Assessment * 62 year old F receiving IV vancomycin, ceftriaxone, acyclovir, ampicillin, and dexamethasone empirically in the setting of fevers/chills, headache and AMS for coverage of meningitis. * S/p LP - not enough fluid for BioFire or other panel. Culture pending. Gram stain without organisms noted. Vancomycin * Maintenance dose: 1500 mg IV every 12 hours * Regimen is predicted to achieve target AUC/MARGAUX of 400-600 mg/L.hr per random level of 14.3 mcg/mL this AM * Will re-order random level in 48 hours Plan * Continue vancomycin 1500 mg IV q12h * Random level 9/9 w AM labs Pharmacy will continue to follow and will adjust dose/frequency as necessary. Thank you. Pharmacy has transitioned to AUC monitoring for vancomycin. AUC/MARGAUX is the preferred PK/PD target and is associated with decreased risk of nephrotoxicity compared to traditional trough targets.
[2022-02-08] MEDS ORDERED: levETIRAcetam 1,500 MG in 0.9 % SODIUM CHLORIDE 100 ML IV STA ×2 (11:38→15:43)
--- NOTE | 2022-02-08 11:50 | Neurology Consultation ---
Date of Consultation February 08, 2022 Assessment & Plan (1) Encephalitis: (2) Abnormal CT of brain: (3) Seizure-like activity: Plan 62-year-old female presenting with progressive headache, fever, leukocytosis, obtundation, initial CSF results potentially consistent with encephalitis, potential mass or space-occupying process within the right subinsular region on head CT, focal seizure like activity noted this morning with gaze deviation to the left and rhythmic tonic-clonic shaking of the upper limbs, left greater than right. Evolving subacute right hemispheric stroke or focal encephalitis not completely excluded. Case discussed with Dr. Senior. Would recommend gadolinium enhanced brain MRI, EEG, repeat lumbar puncture under fluoroscopy to include CSF meningoencephalitis bio fire panel. I agree with broad-spectrum antimicrobial coverage including Rocephin, vancomyc in, acyclovir, ampicillin, as well as addition of dexamethasone. I have ordered a loading dose of Keppra 1500 mg IV x1. Would also recommend continuing with Keppra, 1000 mg IV every 12 hours. Patient should continue with Lovenox for DVT prophylaxis. Her Plavix and atorvastatin are currently on hold in the context of her critical illness. I will advise further pending completion of the above testing. History of Present Illness Reason for Consultation: Change in mental status, concern for meningitis, seizure activity Requesting Physician: Leo Senior MD Attending Physician: Desean Tomlin MD History of Present Illness The patient is a 62-year-old female who presented to the emergency department yesterday for further assessment of headache, fever, change in mental status, symptoms becoming progressively worse over several days. Patient was delirious at the time of her initial evaluation and much of her history was obtained from interview with her family. She had been complaining of a nonspecific gastrointestinal illness several days prior, after returning home from a car trip to [place]. She then began complaining of a headache, fevers, and con fusion as above. She has had an elevated white blood cell count and has been febrile. Initial CT of the head completed yesterday revealed some questionable loss of bains-white junction of the right subinsular cortex, possibly artifactual, subtle effacement of the right lateral ventricle noted as well per my review of the images, no hemorrhage. CT angiography of the head and neck were unremarkable. Patient had a lumbar puncture completed yesterday, small amount of CSF obtained, serosanguineous fluid. Traumatic tap, no xanthochromia, WBC 351, RBC 12,000. There was not enough CSF to obtain a meningoencephalitis bio fire panel, however. Patient's neurologic status has deteriorated, she has been progressively obtunded, at this point, does not respond to voice, touch, or noxious stimulation. She had a repeat CT of the head completed yesterday which again revealed questionable loss of the bains-white junction within the right subinsular space, similar to prior CT of the head. No hemorrhage or other acute finding identified. I independently reviewed these images as well. I did evaluate this patient in the presence of patient's daughter and granddaughter and corroborated the above historical information as well. Patient is currently receiving broad-spectrum antimicrobial therapy including Rocephin, vancomycin, acyclovir, and ampicillin, is also receiving dexamethasone. During my assessment of her, patient did exhibit seizure-like activity, rhythmic shaking of the upper limbs, left greater than right, leftward eye deviation. Episode lasted for about 30 to 45 seconds and resolved. According to patient's nurse at bedside, patient has been exhibiting this intermittent behavior this morning. No prior history of seizure disorder in this patient. Allergies Allergy/AdvReac Type Severity Reaction Status Date / Time morphine Allergy Unknown SENSITIVITY Verified 06/03/19 10:59 -NAUSEA/RED NESS/SWELLI NG Home Medications Medication Instructions Recorded Confirmed Type atorvastatin 40 mg tablet 40 mg PO DAILY 06/03/19 06/03/19 History cilostazol 50 mg tablet 50 mg PO BID 06/03/19 06/03/19 History citalopram 20 mg tablet 30 mg PO DAILY 06/03/19 06/03/19 History clopidogrel 75 mg tablet (Plavix) 75 mg PO DAILY 06/03/19 06/03/19 History gabapentin 300 mg capsule 300 mg PO .COMPLEX 06/03/19 06/03/19 History meloxicam 15 mg tablet 15 mg PO DAILY 06/03/19 06/03/19 History omeprazole 40 mg capsule,delayed 40 mg PO DAILY 06/03/19 06/03/19 History release trazodone 50 mg tablet 50 mg PO DAILY 06/03/19 06/03/19 History Patient History Medical History (Updated 02/08/22 @ 12:05 by Carlos Maldonado MD) Anxiety Depression GERD (gastroesophageal reflux disease) Peripheral arterial disease Surgical History (Updated 02/07/22 @ 05:41 by Toshia Skinner PA-C) No pertinent past surgical history Social History Smoking Status: Never smoker Do You Dip or Chew Tobacco: No; Tobacco Cessation Education Requested by Patient: No Hx Alcohol Use: No Hx Substance Use: No Preferred Language: [place] Communication Ability: Impaired Communication Ability Comment: effective at baseline, not currently [employer] Service Required: No Beliefs That Will Affect Care: None marital status: Current Living Situation: Spouse Other Information That Helps Us Care for You: No Feels Safe at Home: Yes Safety Concerns: Feels Safe At This Time Assistive Devices: Cane Review of Systems Review of Systems: Unobtainable due to reduced consciousness Exam (Neuro) Constitutional: well developed, + morbidly obese and + altered mental status Eyes: PERRL and EOM intact bilaterally Cardiovascular: Vessels: normal carotid upstroke; no carotid bruit Neurologic: Oriented to:: negative Person, Place or Time Memory: negative Short Term Intact or Remote Intact Attention: negative Span Intact or Concentration Intact Speech Fluency: Other (Unable to assess due to obtundation) Fund of Knowledge: Other (Unable to assess due to obtundation) Cranial Nerves: Normal II, III, IV, , V and VII Flaccidity: Arms and Legs Deep Tendon Reflexes: Rt Triceps: 1+, Lt Triceps: 1+, Rt Biceps: 1+, Lt Biceps: 1+, Rt Brachioradialis: 1+, Lt Brachioradialis: 1+, Rt Patellar: 1+, Lt Patellar: 1+, Rt Ankle: 0 and Lt Ankle: 0 Details: Limited cranial nerve examination due to obtundation. Visual vázquez and visual acuity cannot be evaluated. Ocular motility grossly normal although does exhibit to and fro eye movements, roving type movement, did exhibit gaze deviation to the left during observed seizure-like episode as well. No nystagmus. Corneal reflexes intact. No obvious facial droop. Hearing cannot be evaluated. Strength or motor function cannot be fully evaluated due to obtundation. Muscle tone diffusely flaccid. Involuntary seizure-like movements observed and are as described in the HPI. Otherwise, no dystonic posturing or other tremors. Sensory function cannot be evaluated. Does not withdrawal to noxious stimulation. Coordination cannot be evaluated. Deep tendon reflexes are diffusely diminished. Plantar responses silent bilaterally. Gait cannot be tested. Results & Data ([facility]) Vital Signs (Past 12 Hours) Vital Signs Temp Pulse Resp BP BP Pulse Ox O2 Del Method 02/08/22 11:28 37.6 C H 101 H 24 137/85 93 Nasal Cannula 02/08/22 09:42 Nasal Cannula 02/08/22 07:43 37.8 C H 104 H 23 171/94 H 95 Nasal Cannula 02/08/22 03:00 38.0 C H 110 H 28 H 174/88 H 95 Nasal Cannula 02/08/22 02:05 37.9 C H 120 H 28 H 192/88 H 96 02/08/22 00:50 37.9 C H 02/08/22 00:37 Nasal Cannula 02/07/22 23:40 160/80 H O2 Flow Rate 02/08/22 11:28 2 02/08/22 09:42 4 02/08/22 07:43 2 02/08/22 03:00 02/08/22 02:05 02/08/22 00:50 02/08/22 00:37 2 02/07/22 23:40 Laboratory Results WBC 20.34, hemoglobin 14.2, hematocrit 41.6, MCV 86.7, platelet count 302, sodium 134, potassium 3.1, BUN 13, creatinine 0.48, glucose 152, calcium 8.3, magnesium 2.0, AST 30, ALT 25, CSF bloody, red, no xanthochromia, CSF WBC 351, RBC 12,000, urine drug screen negative, upper respiratory PCR/bio fire testing negative. CSF gram stain negative, no white blood cells or organisms seen. Diagnostic Findings CT angiography of the head and neck as well as CT of the head x2 are as described in the history of present illness. I reviewed the images as well as the radiologist's interpretation of these tests. Echocardiography completed yesterday, technically limited, left ventricle hyperdynamic, mild mitral annular calcification, no significant valvular d isease, normal left atrial size. Coding Level of Care Code 39594 Initial Inpt Care Lvl 3 Diagnoses Encephalitis G04.[address] of brain R90.89 Seizure-like activity R56.9
--- NOTE | 2022-02-08 12:47 | Hospitalist Progress Note ---
Date of Service February 08, 2022 Assessment & Plan (1) Metabolic encephalopathy: Plan: Several days of rapidly progressive altered mental status, generalized weakness and fevers, with "migraines" immediately prior to onset of symptoms. CT head/neck/chest/A/P without obvious source of infection. Suspect infectious cause due to ?meningitis. Less likely drug-induced as no home meds are concerning and her symptoms started before Ativan was given in the ED - although Ativan may have further exacerbated altered mental status. - LP done by Radiology today - follow cell count/diff/GS/cx - trend blood cx - UDS pending - started on Vancomycin/Zosyn in the ED - will continue with Vancomycin empiric dosing and transition Zosyn to Ceftriaxone 2g IV Q12H (meningitis dosing) - will start Dexamethasone 10mg IV Q6H to cover for pneumococcal meningitis - s/p 2L NSS boluses in ED - was initially started on Normosol-R @125cc/hr but will hold this for now, as CT chest with signs of mild pulmonary vascular congestion - avoid any deliriogenic medications; no benzodiazepines - repeat CT head w/o contrast for worsening neurologic exam - consider addition of Acyclovir to cover for HSV encephalitis (unfortunately CSF sample limited and thus was not able to test for HSV in CSF) - trend CBC in AM (2) Sepsis: Plan: SIRS 3/4, suspect 2/2 to meningitis as stated above. Plan as above (3) Elevated troponin: Plan: hsTrop 39.9 to 41.1 on re-check 2 hours later. Had not complained of chest pain although difficult to fully assess for this given AMS. EKG without ST/T changes. Suspect demand ischemia in context of sepsis/?meningitis. - TTE with grade I diastolic dysfunction and hyperdynamic EF - no further management at this time (4) Peripheral arterial disease: Plan: Hold home statin/Plavix/Cilostazol for now while NPO 2/2 to AMS. (5) GERD (gastroesophageal reflux disease): Plan: Hold home PPI while NPO (6) Depression: Plan: Hold home Celexa/Trazodone while NPO Plan FEN/GI: NPO, holding IVFs for now DVT Prophylaxis: Lovenox Code Status: full code Disposition: PCU Admission and Anticipated Discharge Date Admission Date: February 07, 2022 Physical Exam Physical Exam: General: Eyes closed, only responds with yes to several questions, cannot speak in coherent sentences. NAD. HEENT: Atraumatic, normocephalic. PERRLA. Pulm: CTAB A&P. -wheezes, -rales, -rhonchi. Symmetrical chest rise. No increase work of breathing. No respiratory distress. Cardiac: RRR, -mrg. Radial pulses intact and symmetrical. Abdominal: soft, non-tender, non-distended, BS x 4 Skin: warm, dry, no rash Results & Data Results & Data ([facility]) Vital Signs (Past 12 Hours) Vital Signs Temp Pulse Resp BP BP Pulse Ox O2 Del Method 02/08/22 11:28 37.6 C H 101 H 24 137/85 93 Nasal Cannula 02/08/22 09:42 Nasal Cannula 02/08/22 07:43 37.8 C H 104 H 23 171/94 H 95 Nasal Cannula 02/08/22 03:00 38.0 C H 110 H 28 H 174/88 H 95 Nasal Cannula 02/08/22 02:05 37.9 C H 120 H 28 H 192/88 H 96 02/08/22 00:50 37.9 C H O2 Flow Rate 02/08/22 11:28 2 02/08/22 09:42 4 02/08/22 07:43 2 02/08/22 03:00 02/08/22 02:05 02/08/22 00:50 (1) Sepsis Sepsis acute organ dysfunction status: unspecified Sepsis type: sepsis due to unspecified organism Qualified Code(s): A41.9 - Sepsis, unspecified organism
[2022-02-08] MEDS ORDERED: GADOBUTROL 65ML VIAL IV ONE (13:23)
--- NOTE | 2022-02-08 13:54 | Magnetic Resonance Report ---
Brain MRI WITH AND WITHOUT CONTRAST HISTORY: Seizures. ?encephalitis vs CVA TECHNIQUE: Multiplanar multisequence MRI of the brain was performed both before and after the intrave nous administration of contrast. COMPARISON STUDY: Head CT 02/07/2022. FINDINGS: Near nondiagnostic evaluation of brain due to motion artifact. There is cortical edema with areas restricted diffusion seen within the right anterior temporal lobe, right subinsular cortex, an d bilateral superior frontal gyri. There may be mild focal edema within the left medial temporal lobe without restricted diffusion. There is associated mass effect and mild right uncal herniation along the right midbrain. There is also mild mass effect along the right lateral ventricle andr left midlin e shift. No definite intracranial hemorrhage at this time. No abnormal enhancement within the brain. IMPRESSION: 1. Cortical edema with areas restricted diffusion within the right temporal lobe and bilateral anteri or frontal lobes as described above. There may also be mild cortical edema within the left medial tem poral lobe. Findings likely represent encephalitis and are suspicious for herpes encephalitis. Underl lucie acute infarcts would be difficult to exclude but considered less likely given the pattern of inv olvement. 2. There is mild mass effect along the right midbrain and right lateral ventricle with 2 mm of left m idline shift. ACT 112: Negative or not required by law. Electronically signed by: Esau Dill M.D. 02/08/2022 1:53 PM
[2022-02-08] MEDS ORDERED: CARBOHYDRATES FOR HYPOGLYCEMIA PO PRN (13:59)
[2022-02-08] MEDS ORDERED: DEXTROSE 50% 50 ML SYRINGE IV PRN (13:59)
[2022-02-08] MEDS ORDERED: GLUCOSE 40% GEL 15 GM TUBE PO PRN (13:59)
[2022-02-08] MEDS ORDERED: GLUCAGON FOR INJ 1 MG VIAL SQ PRN (13:59)
[2022-02-08] MEDS ORDERED: GLUCOSE 10 TAB/TUBE PO PRN (13:59)
[2022-02-08] MEDS ORDERED: AMPICILLIN 2,000 MG in SODIUM CHLOR 0.9% AD-VAN 100 ML IV SCH (15:00)
--- NOTE | 2022-02-08 15:05 | Fluoroscopy Report ---
FLUOROSCOPICALLY GUIDED LUMBAR PUNCTURE CLINICAL HISTORY: ?meningitis, previously without enough CSF on tap FLUOROSCOPY TIME: 0.8 minutes NUMBER OF FLUOROSCOPIC IMAGES: 1 PROCEDURE: The procedure, risks and benefits were discussed with the patient's given the pat ient's altered mental status including the risk of spinal headache, bleeding and infection. The patie nt's agreed to the procedure and informed written consent was obtained. The procedure was per formed by Dr. Weiss following a timeout. The left L2-L3 interlaminar space was targeted. Skin ove rlying the space was prepped and draped in sterile fashion and local anesthesia was achieved with 1% lidocaine. Under intermittent fluoroscopic guidance, a 5 inch, 22-gauge spinal needle was directed in to the thecal sac. There was immediate return of blood-tinged CSF. A total of 9 cc of CSF was collect ed in 4 vials and sent to the laboratory for analysis as ordered. The needle was removed. IMPRESSION: Successful fluoroscopically guided lumbar puncture with collection of 9 cc of blood-tinge d CSF which was sent to the laboratory for analysis as ordered. ACT 112: Negative or not required by law. Electronically signed by: Brannon Weiss M.D. 02/08/2022 3:04 PM
[2022-02-08 15:10] LABS: Cryptococcus neoformans/ga PCR Not Detected (NotDetected); Cytomegalovirus PCR Not Detected (NotDetected); Enterovirus PCR Not Detected (NotDetected); Escherichia coli K1 PCR Not Detected (NotDetected); Haemophilius influenzae PCR Not Detected (NotDetected); Herpes Simplex Virus 2 PCR Not Detected (NotDetected); Human Herpes Virus 6 PCR Not Detected (NotDetected); Human Parechovirus PCR Not Detected (NotDetected); Listeria monocytogenes PCR Not Detected (NotDetected); Neisseria meningitidis PCR Not Detected (NotDetected); Streptococcus agalactiae PCR Not Detected (NotDetected); Streptococcus pneumoniae PCR Not Detected (NotDetected); Varicella Zoster Virus PCR Not Detected (NotDetected)
[2022-02-08 15:16] LABS: Herpes Simplex Virus 1 PCR DETECTED (NotDetected)
--- NOTE | 2022-02-08 15:48 | Critical Care Consultation ---
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 Heme: DVT prophylaxis: Lovenox 40 mg daily: On hold -Consider adjustment given BMI: 39 weight 115 kg Endocrine: ICU hyperglycemia protocol Vascular access: Peripheral IVs Code Status: Full code Disposition: ICU with anticipated transfer in 1 to 2 hours to [facility] for probable continuous EEG (2) Acute encephalopathy: History of Present Illness Reason for Consultation: HSV encephalitis Requesting Physician: Moy Senior Attending Physician: Desean Tomlin MD History of Present Illness History is obtained from prior records and medical providers given patient's altered mental status. Patient is a 62-year-old female with hyperlipidemia and peripheral artery disease, obesity who presented to the emergency department on 02/07 for progressive fevers chills headache and confusion for 3 days. Patient's ex- at the bedside reports that she initially complained of mild headache proceeding to migraine, she does not have a history of migraine she is at approximately 2 underlies per his report. She was treated with Excedrin and did not improve. She is brought to the emergency department found to be febrile and had worsening of her mental status necessitating lumbar puncture. She has had increasing somnolence, and started to have possible seizure-like activity with grimacing and flexing of her right hand. She was started on Keppra 1500 mg IV given a second load per Catherine's recommendation which has been ordered by the primary service. At this point she has been accepted by Dr. 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 Allergies Allergy/AdvReac Type Severity Reaction Status Date / Time morphine Allergy Unknown SENSITIVITY Verified 06/03/19 10:59 -NAUSEA/RED NESS/SWELLI NG Home Medications Medication Instructions Recorded Confirmed Type atorvastatin 40 mg tablet 40 mg PO DAILY 06/03/19 06/03/19 History cilostazol 50 mg tablet 50 mg PO BID 06/03/19 06/03/19 History citalopram 20 mg tablet 30 mg PO DAILY 06/03/19 06/03/19 History clopidogrel 75 mg tablet (Plavix) 75 mg PO DAILY 06/03/19 06/03/19 History gabapentin 300 mg capsule 300 mg PO .COMPLEX 06/03/19 06/03/19 History meloxicam 15 mg tablet 15 mg PO DAILY 06/03/19 06/03/19 History omeprazole 40 mg capsule,delayed 40 mg PO DAILY 06/03/19 06/03/19 History release trazodone 50 mg tablet 50 mg PO DAILY 06/03/19 06/03/19 History Patient History Medical History Anxiety Depression GERD (gastroesophageal reflux disease) Peripheral arterial disease Surgical History No pertinent past surgical history Social History Smoking Status: Never smoker Do You Dip or Chew Tobacco: No; Tobacco Cessation Education Requested by Patient: No Hx Alcohol Use: No Hx Substance Use: No Preferred Language: Angolan Communication Ability: Impaired Communication Ability Comment: effective at baseline, not currently [employer] Required: No Beliefs That Will Affect Care: None marital status: Current Living Situation: Spouse Other Information That Helps Us Care for You: No Feels Safe at Home: Yes Safety Concerns: Feels Safe At This Time Assistive Devices: Cane Review of Systems Review of Systems: Unobtainable due to cognitive status Physical Exam Physical Exam: General: Somnolent. Glascow Coma Scale: Eyes: 1, Verbal 2, Motor 4, Total 7 Skin: Warm, dry, Head: Atraumatic Ears, nose, mouth and throat: airway patent Cardiovascular: Normal peripheral perfusion Respiratory: no respiratory distress Gastrointestinal: Non distended Musculoskeletal: No deformity Results & Data Results & Data ([facility]) Vital Signs (Past 12 Hours) Vital Signs Temp Pulse Resp BP BP Pulse Ox O2 Del Method 02/08/22 14:35 37.8 C H 02/08/22 11:28 37.6 C H 101 H 24 137/85 93 Nasal Cannula 02/08/22 09:42 Nasal Cannula 02/08/22 07:43 37.8 C H 104 H 23 171/94 H 95 Nasal Cannula O2 Flow Rate 02/08/22 14:35 02/08/22 11:28 2 02/08/22 09:42 4 02/08/22 07:43 2 Critical Care Results & Data Vital Signs (Past 12 Hours) Vital Signs Temp Pulse Resp BP BP Pulse Ox O2 Del Method 02/08/22 14:35 37.8 C H 02/08/22 11:28 37.6 C H 101 H 24 137/85 93 Nasal Cannula 02/08/22 09:42 Nasal Cannula 02/08/22 07:43 37.8 C H 104 H 23 171/94 H 95 Nasal Cannula O2 Flow Rate 02/08/22 14:35 02/08/22 11:28 2 02/08/22 09:42 4 02/08/22 07:43 2 Lab & Micro Results (Past 24 Hours) RBC 4.80 M/uL (3.93-5.22) 02/08/22 WBC 20.34 K/ul (4.8-10.8) H 02/08/22 Hgb 14.2 g/dl (12.0-16.0) 02/08/22 Hct 41.6 % (34.1-44.9) 02/08/22 MCV 86.7 fL (80.0-100.0) 02/08/22 MCH 29.6 pg (25.0-34.0) 02/08/22 MCHC 34.1 g/dL (32.0-36.0) 02/08/22 RDW Standard Deviation 39.5 fL (36.4-46.3) 02/08/22 RDW Coefficient of Variation 12.5 % (11.5-14.5) 02/08/22 Plt Count 302 K/uL (130-400) 02/08/22 MPV 9.0 fL (9.4-12.3) L 02/08/22 Neutrophils (%) (Auto) 86.8 % 02/08/22 Lymphocytes (%) (Auto) 7.4 % 02/08/22 Monocytes # (Auto) 0.97 K/uL (0.24-0.82) H 02/08/22 Eosinophils # (Auto) 0.00 K/uL (0-0.50) 02/08/22 Immature Granulocyte % (Auto) 0.9 % 02/08/22 Neutrophils # (Auto) 17.67 K/uL (1.4-6.5) H 02/08/22 Lymphocytes # (Auto) 1.50 K/uL (1.2-3.4) 02/08/22 Monocytes # (Auto) 0.97 K/uL (0.24-0.82) H 02/08/22 Eosinophils # (Auto) 0.00 K/uL (0-0.50) 02/08/22 Basophils # (Auto) 0.02 K/uL (0-0.2) 02/08/22 Immature Granulocyte # (Auto) 0.18 K/uL (0.00-0.02) H 02/08 Na 134 mmol/L (136-145) L 02/08/22 K 3.1 mmol/L (3.5-5.1) L 02/08/22 Cl 98 mmol/L (98-107) 02/08/22 CO2 29 mmol/L (21-32) 02/08/22 Anion Gap 7 (3-11) 02/08/22 BUN 13 mg/dl (6-23) 02/08/22 Creatinine 0.48 mg/dl (0.6-1.2) L 02/08/22 Estimated GFR ( Amer) 121.8 ml/min 02/08/22 Estimated GFR (Non-Af Amer) 105.1 ml/min 02/08/22 BUN/Creatinine Ratio 27.1 (10-20) H 02/08/22 Glu 152 mg/dl (70-99(Fasting)) H 02/08/22 Ca 8.3 mg/dl (8.5-10.1) L 02/08/22 Total Bilirubin 0.8 mg/dl (0.2-1.0) 02/08/22 AST 30 U/L (13-39) 02/08/22 ALT 25 U/L (7-52) 02/08/22 Alkaline Phosphatase 66 U/L (34-104) 02/08/22 TP 6.0 gm/dl (6.0-8.3) 02/08/22 Albumin 4.0 gm/dl (3.4-5.0) 02/08/22 Globulin 2.0 gm/dl (2.5-4.0) L 02/08/22 Albumin/Globulin Ratio 2.0 (0.9-2) 02/08/22 Mg 2.0 mg/dl (1.7-2.4) 02/08/22 07:12 Calcium Level 8.3 mg/dl (8.5-10.1) L 02/08/22 07:12 Microbiology 02/07/22 07:21 Aerobic Blood Culture - Preliminary Blood No growth in Aerobic bottle after 24 hours. Anaerobic Blood Culture - Final 02/07/22 14:33 Gram Stain - Final Cerebral Spinal Fluid CSF Culture - Preliminary No growth to date. 02/07/22 05:32 Urine Culture - Preliminary Urine,Clean Catch No growth - Less than 1,000 colonies/mL, Final report to follow. 02/07/22 06:58 Aerobic Blood Culture - Preliminary Blood No growth in Aerobic bottle after 24 hours. Anaerobic Blood Culture - Preliminary No growth in Anaerobic bottle after 24 hours. Diagnostic Findings (Past 24 Hours) Head CT 02/07/22 22:46 CT OF THE HEAD WITHOUT CONTRAST CLINICAL HISTORY: Worsening of neurologic symptoms. Confusion. COMPARISON STUDY: Head CT and CTA of the head February 07, 2022. CT DOSE: 746.71 mGy.cm TECHNIQUE: Helical axial images of the head were obtained without IV contrast. Automated exposure control was utilized for the study. A dose lowering technique was utilized adhering to the principles of ALARA. FINDINGS: No acute intracranial hemorrhage, midline shift or mass effect is present. Questionable loss of bains-white differentiation within the right subinsular cortex is unchanged since prior head CT. This exam is mildly compromised by artifact. The ventricular system is unremarkable. The basal cisterns are patent. No extra-axial collections are present. There are no findings to suggest acute dural sinus thrombosis or acute territorial infarct. No significant calvarial abnormalities are present. Visualized portions of the sinuses and mastoid air cells are clear. IMPRESSION: 1. No acute intracranial hemorrhage or mass effect. 2. No change in questionable loss of bains-white differentiation within the right subinsular since prior head CT. If indicated, MRI of the brain could be obtained to exclude acute infarct. ACT 112: Negative or not required by law. Electronically signed by: Brannon Weiss M.D. 02/08/2022 8:25 AM Chest X-Ray 02/08/22 07:00 XR chest 1V portable HISTORY: Fever/hypoxia COMPARISON: Chest 02/07/2022. FINDINGS: No pneumothorax. No pleural effusions. The heart remains enlarged. There is mild central pulmonary vascular congestion without overt edema. This is similar to the prior study. Embolization coils again noted within the lingula. IMPRESSION: No change in the mild central pulmonary vascular congestion without overt edema. ACT 112: Negative or not required by law. Electronically signed by: Esau Dill M.D. 02/08/2022 8:08 AM Brain MRI 02/08/22 08:32 Brain MRI WITH AND WITHOUT CONTRAST HISTORY: Seizures. ?encephalitis vs CVA TECHNIQUE: Multiplanar multisequence MRI of the brain was performed both before and after the intravenous administration of contrast. COMPARISON STUDY: Head CT 02/07/2022. FINDINGS: Near nondiagnostic evaluation of brain due to motion artifact. There is cortical edema with areas restricted diffusion seen within the right anterior temporal lobe, right subinsular cortex, and bilateral superior frontal gyri. There may be mild focal edema within the left medial temporal lobe without restricted diffusion. There is associated mass effect and mild right uncal herniation along the right midbrain. There is also mild mass effect along the right lateral ventricle andr left midline shift. No definite intracranial hemorrhage at this time. No abnormal enhancement within the brain. IMPRESSION: 1. Cortical edema with areas restricted diffusion within the right temporal lobe and bilateral anterior frontal lobes as described above. There may also be mild cortical edema within the left medial temporal lobe. Findings likely represent encephalitis and are suspicious for herpes encephalitis. Underlying acute infarcts would be difficult to exclude but considered less likely given the pattern of involvement. 2. There is mild mass effect along the right midbrain and right lateral ventricle with 2 mm of left midline shift. ACT 112: Negative or not required by law. Electronically signed by: Esau Dill M.D. 02/08/2022 1:53 PM Lumbar Puncture Fluoroscopy 02/08/22 08:40 FLUOROSCOPICALLY GUIDED LUMBAR PUNCTURE CLINICAL HISTORY: ?meningitis, previously without enough CSF on tap FLUOROSCOPY TIME: 0.8 minutes NUMBER OF FLUOROSCOPIC IMAGES: 1 PROCEDURE: The procedure, risks and benefits were discussed with the patient's given the patient's altered mental status including the risk of spinal headache, bleeding and infection. The patient's agreed to the procedure and informed written consent was obtained. The procedure was performed by Dr. Weiss following a timeout. The left L2-L3 interlaminar space was targeted. Skin overlying the space was prepped and draped in sterile fashion and local anesthesia was achieved with 1% lidocaine. Under intermittent fluoroscopic guidance, a 5 inch, 22-gauge spinal needle was directed into the thecal sac. There was immediate return of blood-tinged CSF. A total of 9 cc of CSF was collected in 4 vials and sent to the laboratory for analysis as ordered. The needle was removed. IMPRESSION: Successful fluoroscopically guided lumbar puncture with collection of 9 cc of blood-tinged CSF which was sent to the laboratory for analysis as ordered. ACT 112: Negative or not required by law. Electronically signed by: Brannon Weiss M.D. 02/08/2022 3:04 PM I & O Totals 24 Hours 02/07/22 02/08/22 02/09/22 06:59 06:59 06:59 Intake Total 5198.667 / 5198.667 952 / 952 Output Total 801 / 801 602 / 602 Balance 4397.667 / 4397.667 350 / 350 Cumulative 02/07/22 05:10 thru 02/08/22 15:21 Intake Total 6150.667 Output Total 1403 Balance 4747.667 RT Ventilator Mngmt (Last Documented) Ventilator Ordered Settings Respiratory Rate 24 02/08/22 11:28 Ventilator - PT Measurements Respiratory Rate 24 Coding Level of Care Code Critical Care 1st 30-74 mins Diagnoses Encephalitis G04.90 Acute encephalopathy G93.40 Time Spent (min) 45
--- NOTE | 2022-02-08 16:26 | Discharge Summary ---
Date of Service February 08, 2022 Admission HPI Per Admitting Provider Bessie Segura is a 62yo female with PMHx significant for HLD, PAD, obesity and GERD who presented to [facility] ED on 02/07 for progressive fever/chills, headache, confusion for 3 days. History obtained from patient's daughter as she is currently pleasantly delirious and unable to speak in coherent sentences. Patient reportedly recently went to [place] for a constitution party with friends and drove herself back to [place]. Of note several people at the constitution party had a stomach bug but the patient reportedly did not complain of any GI symptoms or generalized illness. Then started to have a "migraine" ~4 days ago, which lasted for 1-2 days. Of note patient does not usually get migraines. Then the patient reportedly had fevers for last 2-3 days and progressively worsening confusion. Over last 24 hours the patient has progressively become confused to the point of currently being unable to follow commands or speak in coherent sentences. Reportedly patient did not complain of cough, chest pain, SOB, any pain whatsoever, or rash. Patient's daughter reports that she has no smoking history and rarely drinks alcohol; no drug use. Usually proficient in ADLs/iADLs and without baseline dementia. In the ED the patient had T38.1C, HR 128, and is satting 88% on 2L NC. Normotensive. Labs significant for WBC 18.14 (neutrophilic predominance and L shift), Lacate 1.7, Procal negative. Na 132/ K 2.7/Cl 93. TBili 1.3. CK 312. hsTrop 39.9 - re-check 41.1. EKG without ST/T changes. UA no LE/nitrite/bacteria but with budding yeast. Biofire campbell-negative. CT head with questionable loss of the bains-white junction of the right subinsular cortex which could be artifact. CTA head/neck unremarkable. Blood/urine cxs taken and patient started on Vanco/Zosyn empiric coverage. Patient received total 2L NSS boluses, Ativan 1mg IV x2, Tylenol 1g IV x1, and Reglan 5mg IV x1. Also received KCl 40mEq PO and 2 K-riders. Admission Exam Per Admitting Provider Physical Exam: General: Eyes closed, only responds with yes to several questions, cannot speak in coherent sentences. NAD. HEENT: Atraumatic, normocephalic. PERRLA. Pulm: CTAB A&P. -wheezes, -rales, -rhonchi. Symmetrical chest rise. No increase work of breathing. No respiratory distress. Cardiac: RRR, -mrg. Radial pulses intact and symmetrical. Abdominal: soft, non-tender, non-distended, BS x 4 Skin: warm, dry, no rash Neurologic: neurologic exam significantly limited due to altered mental status, although no focal neurologic deficits apparent. Principal Diagnosis HSV Encephalitis Discharge Exam Physical Exam: General: Obtunded; eyes closed, unresponsive to verbal/tactile/painful stimuli. Mild bilateral UE convulsions. HEENT: Atraumatic, normocephalic. PERRLA but random eye movements from side to side. Pulm: Noticeably tachypneic but LCTAB and -wheezes, -rales, -rhonchi. Cardiac: RRR, -mrg. Radial pulses intact and symmetrical. No LE edema. Abdominal: soft, non-tender, non-distended, BS x 4 Skin: warm, dry, no rash Neurologic: neurologic exam significantly limited due to altered mental status. Patient is obtunded as stated above with bilateral UE mild convulsions Discharge Data Allergies Allergy/AdvReac Type Severity Reaction Status Date / Time morphine Allergy Unknown SENSITIVITY Verified 06/03/19 10:59 -NAUSEA/RED NESS/SWELLI NG Consultations 02/07/22 06:39 ED Decision to Admit Stat 02/07/22 16:38 Consult Neurology Routine 02/08/22 15:07 Consult Carcass Trimmer Routine Ordered Studies 02/07/22 05:26 CT angio head w con Urgent CT angio neck with con Urgent CT head/brain wo con Urgent 02/07/22 08:21 CT chest diagnostic w con Stat CTA abdomen pelvis w con [CT angio abdomen pelvis w con] Stat 02/07/22 09:06 FL lumbar puncture diagnostic Routine 02/07/22 22:46 CT head/brain wo con Urgent 02/08/22 08:32 MRI Brain [MR brain wo/w con] Stat 02/08/22 08:40 FL lumbar puncture diagnostic Routine 02/09/22 07:00 CT head/brain wo con Routine Hospital Course (1) 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 With rapid progression to obtunded mental status and unresponsive to any stimuli as of 02/08. Also with ?seizure/status epilepticus. LP on 02/08 positive for HSV-1 and MRI with right temporal and bilateral frontal lobe involvement, with mass effect along right midbrain and right lateral ventricle, and 2mm left midline shift - initially started on Vancomycin/Zosyn in the ED and was transitioned to Vancomycin, Ceftriaxone 2g IV Q12H, Acyclovir 850mg IV Q8H, and Dexamethasone 10mg IV Q6H - Ampicillin 2g IV Q4H added in the morning on 02/08 - Neurology was consulted and was in agreement with the above - All abx and steroids were stopped in the afternoon on 02/08, when confirmed HSV- 1 encephalitis via CSF Biofire - due to ?seizure/status epilepticus, the patient was given Keppra 1500mg IV loading dose at 12:00, and then was given another 1500mg IV loading dose (for total of 3g) several hours later, by recommendation of [facility] - note: EEG unable to be performed; thus we are treating for suspected seizure activity - patient remains obtunded, unresponsive to all stimuli, and with mild bilateral UE shaking - due to persistent decompensation despite anti-viral therapy for >12 hours, will transfer the patient to [facility] ICU for further management (2) Elevated troponin: hsTrop 39.9 to 41.1 on re-check 2 hours later. Had not complained of chest pain although difficult to fully assess for this given AMS. EKG without ST/T changes. Suspect demand ischemia in context of sepsis/?meningitis. - TTE with grade I diastolic dysfunction and hyperdynamic EF - no further management at this time (3) Peripheral arterial disease: Hold home statin/Plavix/Cilostazol for now while NPO 2/2 to AMS. (4) GERD (gastroesophageal reflux disease): Hold home PPI while NPO (5) Depression: Hold home Celexa/Trazodone while NPO Plan FEN/GI: NPO DVT Prophylaxis: Lovenox was given on 02/07 but was held for LP on 02/08; rony kelsey hemoprophylaxis contraindicated due to HSV encephalitis. 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 With rapid progression to obtunded mental status and unresponsive to any stimuli as of 02/08. Also with ?seizure/status epilepticus. LP on 02/08 positive for HSV-1 and MRI with right temporal and bilateral frontal lobe involvement, with mass effect along right midbrain and right lateral ventricle, and 2mm left midline shift - initially started on Vancomycin/Zosyn in the ED and was transitioned to Vancomycin, Ceftriaxone 2g IV Q12H, Acyclovir 850mg IV Q8H, and Dexamethasone 10mg IV Q6H - Ampicillin 2g IV Q4H added in the morning on 02/08 - Neurology was consulted and was in agreement with the above - All abx and steroids were stopped in the afternoon on 02/08, when confirmed HSV-1 encephalitis via CSF Biofire - due to ?seizure/status epilepticus, the patient was given Keppra 1500mg IV loading dose at 12:00, and then was given another 1500mg IV loading dose (for total of 3g) several hours later, by recommendation of [facility] - note: EEG unable to be performed; thus we are treating for suspected seizure activity - patient remains obtunded, unresponsive to all stimuli, and with mild bilateral UE shaking - due to persistent decompensation despite anti-viral therapy for >12 hours, will transfer the patient to [facility] for further management (2) Elevated troponin: hsTrop 39.9 to 41.1 on re-check 2 hours later. Had not complained of chest pain although difficult to fully assess for this given AMS. EKG without ST/T changes. Suspect demand ischemia in context of sepsis/?meningitis. - TTE with grade I diastolic dysfunction and hyperdynamic EF - no further management at this time (3) Peripheral arterial disease: Hold home statin/Plavix/Cilostazol for now while NPO 2/2 to AMS. (4) GERD (gastroesophageal reflux disease): Hold home PPI while NPO (5) Depression: Hold home Celexa/Trazodone while NPO Plan FEN/GI: NPO DVT Prophylaxis: Lovenox was given on 02/07 but was held for LP on 02/08; furher chemoprophylaxis contraindicated due to HSV encephalitis. Code Status: full code Pending Studies at Discharge: No Stand-Alone Forms: My [facility] Skilled Items Patient informed of condition?: Yes DNR: No Discharge Level of Care: Other Communicable Disease: No Discharge Prognosis: Deteriorating Lines: Peripheral IV Urinary Catheter: No Medications and DC Order Prescriptions: Continued gabapentin 300 mg capsule 300 mg PO .COMPLEX Rx Instructions: 300 mg PO 1 capsule in the AM, 2 capsules midday, & 2 capsules at bedtime; atorvastatin 40 mg tablet 40 mg PO DAILY clopidogrel [Plavix] 75 mg tablet 75 mg PO DAILY omeprazole 40 mg capsule,delayed release(DR/EC) 40 mg PO DAILY meloxicam 15 mg tablet 15 mg PO DAILY trazodone 50 mg tablet 50 mg PO DAILY citalopram 20 mg tablet 30 mg PO DAILY cilostazol 50 mg tablet 50 mg PO BID Discharge Orders: Discharge Order (Routine); Ordered 02/08/22 Ordered By: Leo Senior Admission Data Admit Date/Time: 02/07/22 08:21 Attending Provider: Desean Tomlin Admit Provider: Desean Tomlin Primary Care Provider: Osbaldo Mcintosh Other Providers: Mercedez Schaefer ; Syed Cha ; Carlos Tracey Supervising Physician Co-Signing Physician Notes Attending attestation Pt seen and examined in concert with Dr. Senior. In agreement with the documen alicia findings as noted in the resident documentation with any exceptions or additions as noted here. Worsened mental status today with decreased responsiveness and increased tremulousness/spasticity concerning for seizure activity. Family at bedside updated with clinical condition, prognosis and plan including transition to ICU and transfer to tertiary facility for advanced management. On examination, S1/S2 nl tachycardia no MCG. decreased BS at bases, tachypnea. Abd ND BS+ve, no responsiveness to palpation. PERRLA/EOMI. Ongoing LUE seizure like tremor vs. spasm. Nursing notes, VS, MRI reviewed. Encephalitis likely 2/2 HSV - repeat LP today with testing pending but MRI with findings c/w HSV encephalitis. Continue acyclovir, amp, ceftriaxone, vanc, decadron and transition to ICU. Keppra loading dose as directed by neuro ICU service at receiving hospital with transition in progress. Else see resident documentation as noted. Total attending physician time spent with this patient's care on the day of transfer: 65 minutes. Resident Activity Tracking Resident Involvement: Resident Care Provided Care Provided: Adult Hospital Medicine and OB Delivery
[2022-02-08] MEDS ORDERED: INSULIN ASPART PER UNIT SC SCH (16:30)
[2022-02-09] MEDS ORDERED: levETIRAcetam 1,000 MG in 0.9 % SODIUM CHLORIDE 100 ML IV SCH
== END 2022-02-08 20:39 | disposition short-term general hospital (02) ==
LOC: ED 05:10 → 2E 08:21 → INTOOBSV 08:21 → 2E 09:19 → 1E 02-08 16:44
DX: R41.0 Disorientation, unspecified; Z79.02 Long term (current) use of antithrombotics/antiplatelets; I73.9 Peripheral vascular disease, unspecified; Z79.899 Other long term (current) drug therapy; Z88.5 Allergy status to narcotic agent; K21.9 Gastro-esophageal reflux disease without esophagitis; B00.9 Herpesviral infection, unspecified; R77.8 Other specified abnormalities of plasma proteins; G04.90 Encephalitis and encephalomyelitis, unspecified